=== PATIENT | male | born 1975 | race Caucasian/White ===

== ENCOUNTER 2024-09-20 08:40 | Outpatient (OUT) | payer OTHER, SELFPAY ==
--- NOTE | 2024-09-20 08:55 | US_ITS ---
[place] [id number] Patient Name: ANA ROSA LEE MRN: [id number] date: 1975 Sex: M Assigned Patient Location: US Current Patient Location: US Accession/Order Number: [id number] Exam Date: 09/20/2024 11:51 Report Date: 09/20/2024 11:53 At the request of: ANTONETTE HANSEN NP Procedure: US right upper quadrant LIMITED ABDOMINAL ULTRASOUND: CLINICAL HISTORY: Alcohol dependence, uncomplicated COMPARISON: None TECHNIQUE: Grayscale and color Doppler images of the right upper quadrant organs were obtained. FINDINGS: Pancreas: Visualized portions appear unremarkable. Liver: Unremarkable. Gallbladder: Unremarkable. CBD: 5.3 mm RT KIDNEY: No Hydronephrosis US/US right upper quadrant IMPRESSION: NO ACUTE PROCESS. . Impression dictated by: Tj Wilson Jr., D.O. 09/20/2024 11:53 AM Dictation Location: [place] [address] Electronically authenticated by: [id number] Y Date: 09/20/2024 11:53
== END 2024-09-20 08:41 | disposition home or self-care (01) ==
LOC: US 08:45
PROVIDERS: Visit Provider Nurse Practitioner Primary Care
DX: F10.20 Alcohol dependence, uncomplicated (principal); I10 Essential (primary) hypertension
CPT/HCPCS: 76705